=== PATIENT | male | born 1950 | race Caucasian/White ===

== ENCOUNTER 2022-07-12 20:03 | Outpatient (CLI) | payer OTHER, SELFPAY | END 2022-07-12 20:04 | disposition home or self-care (01) | PROVIDERS: PCP Chiropractor; Visit Provider Chiropractor | DX: G47.33 Obstructive sleep apnea (adult) (pediatric) (principal); R00.1 Bradycardia, unspecified; R00.0 Tachycardia, unspecified | CPT/HCPCS: 95810 ==